=== PATIENT | female | born 1980 | race African-American/Black ===

== ENCOUNTER 2025-03-31 22:17 | Emergency (ER) | payer OTHER ==
[2025-03-31 22:33] VITALS: BP 148/90; PULSE 85; RESP 20; TEMP 97.4; BMI 39.9
[2025-04-01 00:15] LABS: ABSOLUTE IMMATURE GRANULOCYTES 0.00 x10^3/uL (0.0-0.031); BASOPHILS # 0.01 x10^3/uL (0.01-0.08); EOSINOPHIL % 2.8 % (0.7-5.8); EOSINOPHILS # 0.14 x10^3/uL (0.04-0.36); MCHC 31.0 g/dl (32.2-35.5); MEAN CELL VOLUME 91.7 fl (79.4-94.8); MEAN PLT VOLUME 10.1 fl (9.4-12.3); MONOCYTE # 0.42 x10^3/uL (0.24-0.86); MONOCYTE % 8.3 % (4.7-12.5); RDW 13.3 % (12.2-17.1)
[2025-04-01 00:29] LABS: GLUCOSE,RANDOM 85.0 mg/dL (74-106)
[2025-04-01 00:30] LABS: TOT PROT 7.5 g/dl (6.4-8.2)
[2025-04-01 00:31] LABS: CO2 24.0 mmol/L (21-32)
[2025-04-01 00:32] LABS: ALK PHOS 56.0 U/L (40-150)
[2025-04-01 00:35] LABS: CREATININE 0.76 mg/dL (0.55-1.3); SGOT/AST 30.0 U/L (5-34); SGPT/ALT 14.0 U/L (0-55)
[2025-04-01 00:55] LABS: HIV INTERPRETATION PRESUMPTIVE POSITIVE (NEGATIVE)
[2025-04-01] MEDS: BENZTROPINE MESYLATE 2 MG/2 ML INJECTION IM ONE (00:56)
[2025-04-01 01:41] LABS: HCV DIAGNOSTIC IN-HOUSE W/RFLX REACTIVE (NONREACTIVE)
== END 2025-04-01 01:49 | disposition home or self-care (01) ==
LOC: JER 22:17
PROC: 3E023GC Introduction of Other Therapeutic Substance into Muscle, Percutaneous Approach (ICD-10-PCS; principal; 2025-04-01)
DX: D49.6 Neoplasm of unspecified behavior of brain (principal); R51.9 Headache, unspecified; M54.2 Cervicalgia; G89.29 Other chronic pain; R25.1 Tremor, unspecified
CPT/HCPCS: 36415; 70450-TC; 80053; 85025; 86803; 87389; 87522; 99285-25